=== PATIENT | male | born 1940 | race Caucasian/White ===

== ENCOUNTER → 2018-04-20 | Outpatient (CLI) | payer OTHER ==
[~2018-04-20] MED LIST: REGADENOSON 0.4 MG/5 ML PF SYG IVP SCH
== END | disposition home or self-care (01) ==
LOC: SHCH 09:25
PROVIDERS: ATTEND Internal Medicine Cardiovascular Disease
DX: I25.10 Atherosclerotic heart disease of native coronary artery without angina pectoris (principal)
CPT/HCPCS: 78452; 93017; 96374; A9500 ×2; J2785

== ENCOUNTER 2019-08-06 05:43 | Day surgery (SDC) | payer OTHER ==
[2019-08-05 15:07] VITALS: BP 147/66
[2019-08-05 15:24] LABS: INR 0.97 (0.85-1.15); PROTHROMBIN TIME 10.2 SEC (9.6-11.6)
[~2019-08-06] VITALS: Ht 167.6 cm; Wt 89.9 kg
[2019-08-06] VITALS (13 sets, daily range): BP systolic 133–159; BP diastolic 50–67
[~2019-08-06 05:43] MED LIST changes: +ASPI-1181 PO; +ATOR10TA69 PO; +FERR325T22 PO; +FLUO10CA21 PO; +LISI-617 PO; +MELA3CAP2 PO; +MULT1TAB66 PO; +NITR0.4T50 SL; +OMEP20CA12 PO; -REGADENOSON 0.4 MG/5 ML PF SYG IVP SCH; +SODIUM CHLORIDE 0.9% 500ML 500 ML IV SCH
--- NOTE | 2019-08-06 06:00 | NUR ---
PATIENT ARRIVED TO DAY PATIENT ACCOMPANIED BY SPOUSE (DOC). PATIENT AAOX3, RESPIRATIONS UNLABORED, VITAL SIGNS STABLE. DENIES ANY PAIN AT THIS TIME. PROCEDURE VERIFIED WITH PATIENT AND HOSPITAL ROUTINE EXPLAINED TO PATIENT AND SPOUSE, BOTH VERBALIZED UNDERSTANDING.
[2019-08-06] MEDS ORDERED: SODIUM CHLORIDE 0.9% 1000ML 1,000 ML IV ONE (06:23)
[2019-08-06] MEDS ORDERED: HEPARIN SODIUM 1000UNIT/ML 10ML VIAL ONE (07:10)
[2019-08-06] MEDS ORDERED: IOHEXOL-350 50ML VIAL IV ONE ×3 (07:10→08:30)
[2019-08-06] MEDS ORDERED: IOHEXOL 350 MG/ML 100ML INFUS..BTL IV ONE (07:10)
[2019-08-06] MEDS ORDERED: LIDOCAINE HCL 2% 20ML ONE (07:10)
[2019-08-06] MEDS ORDERED: BIVALIRUDIN 250 MG/VIAL IV ONE (07:10)
--- NOTE | 2019-08-06 07:20 | NUR ---
PATIENT TRANSFERRED TO [employer] [facility] [employer] [facility] VIA BED BY MICHAEL BRIAN. SPOUSE INSTRUCTED TO WAIT IN THE ROOM IN ORDER TO SPEAK WITH DR FRANCE AFTER PROCEDURE IS COMPLETE.
[2019-08-06] MEDS ORDERED: NITROGLYCERIN 50 MG/D5% WATER 1 BOT ONE (07:29)
[2019-08-06] MEDS ORDERED: ADENOSINE 90MG/30ML VIAL IV ONE (08:08)
[2019-08-06] MEDS ORDERED: SODIUM CHLORIDE 0.9% 1000ML 1,000 ML IV SCH (08:58)
[2019-08-06] MEDS ORDERED: ACETAMINOPHEN 325 MG TAB ONE (13:08)
--- NOTE | 2019-08-06 15:30 | NUR ---
DC PT DC HOME VIA WC,NO DISTRESS NOTED PT DENIED ANY PAIN OR DISCOMFORTS. RIGHT GROIN D STAT DRESSING DRY AND INTACT. PT ACCOMPANIED BY SPOUSE
== END 2019-08-06 15:30 | disposition home or self-care (01) ==
LOC: DAH 05:43
PROVIDERS: ATTEND Internal Medicine Cardiovascular Disease
DX: I25.118 Atherosclerotic heart disease of native coronary artery with other forms of angina pectoris (principal); I10 Essential (primary) hypertension; E78.5 Hyperlipidemia, unspecified; Z79.82 Long term (current) use of aspirin; Z79.899 Other long term (current) drug therapy; Z87.891 Personal history of nicotine dependence; Z85.828 Personal history of other malignant neoplasm of skin; Z98.41 Cataract extraction status, right eye; Z98.42 Cataract extraction status, left eye; Z96.1 Presence of intraocular lens; Z82.3 Family history of stroke; Z82.49 Family history of ischemic heart disease and other diseases of the circulatory system
CPT/HCPCS: 36415; 71045; 85610; 85730; 93005; 93458; 93571; A4215; A4216; A4221; A4222; A4223 ×3; A4606; A4663; C1760; C1769; C1887; C1894; J0153; J1644 ×2; J3490 ×2; J7030; Q9965; Q9967 ×4; J0583

== ENCOUNTER 2022-04-08 05:43 | Day surgery (SDC) | payer OTHER ==
[2022-04-03 12:25] LABS: APPEARANCE,URINE CLEAR (CLEAR); BILIRUBIN,URINE NEGATIVE (NEGATIVE); COLOR,URINE COLORLESS (YELLOW); GLUCOSE, URINE (UA) NEGATIVE (NEGATIVE); KETONES,URINE NEGATIVE (NEGATIVE); LEUKOCYTE ESTERASE ,URINE NEGATIVE Leu/uL (NEGATIVE); NITRATE,URINE NEGATIVE (NEGATIVE); OCCULT BLOOD,URINE SMALL (NEGATIVE); PH,URINE 6.5 (5.0-8.0); PROTEIN,URINE NEGATIVE (NEGATIVE); PROTHROMBIN TIME 10.9 SEC (9.6-11.6); UROBILINOGEN,URINE 0.2 mg/dL (0.2-1.0)
[2022-04-03 12:26] LABS: PARTIAL THROMBOPLASTIN TIME 27.2 SEC (26.3-35.5)
[2022-04-03 12:27] LABS: B-TYPE NATRIURETIC PEPTIDE 83 pg/mL (0-100); BASOPHILS % (AUTO) 0.4 % (0.0-5.0); EOSINOPHILS % (AUTO) 18.7 % (0.0-8.0); HEMATOCRIT 36.2 % (42-54); LYMPHOCYTES % (AUTO) 16.1 % (21.0-51.0); MEAN CORPUSCULAR HEMOGLOBIN 29.5 pg (27.0-33.0); MEAN CORPUSCULAR HGB CONC 32.9 g/dL (32.0-36.0); MEAN CORPUSCULAR VOLUME 89.8 fL (79-99); MONOCYTES % (AUTO) 6.5 % (3.0-13.0); NEUTROPHILS % (AUTO) 57.8 % (40.0-77.0); PLATELET COUNT (AUTO) 205 K/uL (130-400); RED BLOOD CELL COUNT(AUTO) 4.03 MIL/uL (4.50-6.20); RED CELL DISTRIBUTION WIDTH 15.2 % (11.0-15.5); SQUAMOUS EPITHELIAL CELL,UR RARE /HPF (0-2); WBC,URINE 0-1 /HPF (0-1); WHITE BLOOD COUNT (AUTO) 9.5 K/uL (4.8-10.8)
[2022-04-03 12:33] LABS: CREATININE 1.3 mg/dL (0.5-1.5); POTASSIUM 4.8 mmol/L (3.5-5.1)
[2022-04-05 09:44] VITALS: BP 149/72
[~2022-04-08] VITALS: Ht 167.6 cm; Wt 93.9 kg
[2022-04-08] VITALS (10 sets, daily range): BP systolic 129–159; BP diastolic 53–71
[~2022-04-08 05:43] MED LIST changes: +AMLO2.5T4 PO; -ASPI-1181 PO; +ASPI-1443 PO; -ATOR10TA69 PO; +ATOR40TA71 PO; -FERR325T22 PO; -FLUO10CA21 PO; +ISOS120T14 PO; -LISI-617 PO; -MELA3CAP2 PO; -MULT1TAB66 PO; +RANO500T2 PO; -SODIUM CHLORIDE 0.9% 500ML 500 ML IV SCH
[2022-04-08] MEDS ORDERED: 0.9%NACL 1000ML 1,000 ML IV ONE ×2 (06:13→06:14)
[2022-04-08] MEDS ORDERED: IOHEXOL 350 MG/ML 100ML INFUS..BTL IV ONE (07:07)
[2022-04-08] MEDS ORDERED: LIDOCAINE HCL-MPF 2% 10ML AMP IJ ONE (07:07)
[2022-04-08] MEDS ORDERED: NITROGLYCERIN 50MG VIAL ONE (07:07)
[2022-04-08] MEDS ORDERED: IOHEXOL-350 50ML VIAL IV ONE (07:07)
[2022-04-08] MEDS ORDERED: MIDAZOLAM HCL 5 MG/ML 2ML VIAL IV ONE (07:07)
[2022-04-08] MEDS ORDERED: FENTANYL CITRATE PF 50 MCG/1 ML 2ML VIAL ONE ×2 (07:40→09:27)
[2022-04-08] MEDS ORDERED: HEPARIN 10,000 UNIT/10ML (1,000 UNIT/ML) VIAL ONE (08:30)
[2022-04-08] MEDS ORDERED: BIVALIRUDIN 250 MG/VIAL IV ONE (08:48)
[2022-04-08] MEDS ORDERED: CLOPIDOGREL 300MG TAB ONE (08:49)
[2022-04-08] MEDS ORDERED: ASPIRIN 81MG CHEW TAB ONE (08:49)
[2022-04-08] MEDS ORDERED: LABETALOL 20MG SYG IV ONE (09:17)
[2022-04-08] MEDS ORDERED: 0.9%NACL 1000ML 1,000 ML IV SCH (10:00)
[2022-04-08] MEDS ORDERED: ONDANSETRON 4MG INJ IVP PRN (10:00)
[2022-04-08] MEDS ORDERED: ACETAMINOPHEN WITH CODEINE 1 TAB TAB PO PRN ×2 (10:00)
== END 2022-04-08 13:29 | disposition home or self-care (01) ==
LOC: DAH 05:43
PROVIDERS: ATTEND Internal Medicine Cardiovascular Disease
DX: I25.118 Atherosclerotic heart disease of native coronary artery with other forms of angina pectoris (principal); Q24.5 Malformation of coronary vessels; I12.9 Hypertensive chronic kidney disease with stage 1 through stage 4 chronic kidney disease, or unspecified chronic kidney disease; N18.9 Chronic kidney disease, unspecified; I45.10 Unspecified right bundle-branch block; E78.5 Hyperlipidemia, unspecified; Z95.5 Presence of coronary angioplasty implant and graft; Z98.890 Other specified postprocedural states; Z90.49 Acquired absence of other specified parts of digestive tract; Z98.41 Cataract extraction status, right eye; Z98.42 Cataract extraction status, left eye; Z87.891 Personal history of nicotine dependence; Z79.82 Long term (current) use of aspirin; Z79.01 Long term (current) use of anticoagulants
CPT/HCPCS: 80048; 83880; 85025; 85610; 85730; 81001; 36415; 71045; 93005; 92978; 93458; C9600; C1769 ×2; C1887; C1894 ×2; C1760; C1874 ×2; Q9965 ×2; J3010 ×2; J7030 ×2; J1644 ×2; J3490 ×2; J0583; J2250; Q9967 ×2; A4215; A4222; A4221; A4663; A4216; A4606; A4223 ×3; 96360; 96361; 99156; 99157